=== PATIENT | male | born 1970 | race Caucasian/White ===

== ENCOUNTER → 2023-12-19 08:23 | Outpatient (REF) | payer OTHER, SELFPAY ==
[2023-12-19 10:10] LABS: HDL Cholesterol 41 mg/dl; LDL Cholesterol, Calculated 103 mg/dl; Total Cholesterol 174 mg/dl (50-199); Triglyceride 151 mg/dl (10-149); Very Low Density Lipoprotein 30 mg/dl (0-30)
== END ==
LOC: REG 08:23
PROVIDERS: ATTENDING PHYSICIAN Student in an Organized Health Care Education/Training Program
DX: E78.5 Hyperlipidemia, unspecified (principal)
CPT/HCPCS: 36415; 80061